=== PATIENT | male | born 1975 | race Caucasian/White ===

== ENCOUNTER 2023-08-02 17:14 | Emergency (ER) | payer BC, SELFPAY ==
[2023-08-02 17:16] VITALS: BP 164/105; PULSE 70; RESP 18; TEMP 36.4; O2SAT 100
--- NOTE | 2023-08-02 21:30 | ED.MALEGU ---
HPI - Male Genitourinary General Chief complaint: Urogenital-Male Stated complaint: STD Check Time Seen by Provider: 08/02/23 20:38 Source: patient Mode of arrival: ambulatory Limitations: no limitations History of Present Illness HPI Narrative: Patient is a 48-year-old male who presents to the ED requesting HIV and hepatitis testing. Patient reports recently having an extramarital affair over the last 2 months. at bedside reports she discovered this and had STD testing and was reactive for HIV and hepatitis-C. She then requested that patient come get tested as well. 's HIV testing was sent off for further review. tested negative for gonorrhea, chlamydia, Trichomonas. Patient requesting be tested for HIV and hepatitis. He denies any symptoms. Denies fevers, weight loss, night sweats, penile discharge, dysuria, abdominal pain, nausea, vomiting. Related Data Allergies Allergy/AdvReac Type Severity Reaction Status Date / Time No Known Allergies Allergy Verified 08/02/23 20:39 Review of Systems Review of Systems: CONSTITUTIONAL: Denies fever, chills, or sweats. CARDIOVASCULAR: Denies chest pain. RESPIRATORY: Denies dyspnea. GASTROINTESTINAL: Denies abdominal pain, nausea, vomiting, or diarrhea. GENITOURINARY: Denies dysuria or hematuria. NEUROLOGIC: Denies headache, dizziness, numbness, or weakness. All systems reviewed & are unremarkable except as noted in HPI and below Exam Narrative: GENERAL: Well appearing, obese with BMI of 32.8, non-toxic, in no acute distress. HEAD: Normocephalic, atraumatic. RESPIRATORY: Airway patent, respirations nonlabored. Clear to auscultation bilaterally, no rales, rhonchi, wheezing. CARDIOVASCULAR: Regular rate and rhythm without murmurs, rubs, or gallops. MUSCULOSKELETAL: Moves all extremities. No gross deformities. SKIN: Warm, dry, normal color. NEURO: A&O X3. Speech clear. PSYCHIATRIC: Appropriate mood and affect. Normal interaction. Course Vital Signs Vital signs: Vital Signs Temperature 97.6 F 08/02/23 17:16 Pulse Rate 70 08/02/23 17:16 Respiratory Rate 18 08/02/23 17:16 Blood Pressure 164/105 H 08/02/23 17:16 Pulse Oximetry 100 08/02/23 17:16 Oxygen Delivery Room Air 08/02/23 17:16 Temperature 97.6 F 08/02/23 17:16 Pulse Rate 70 08/02/23 17:16 Respiratory Rate 18 08/02/23 17:16 Blood Pressure 164/105 H 08/02/23 17:16 Pulse Oximetry 100 08/02/23 17:16 Oxygen Delivery Room Air 08/02/23 17:16 MDM - Male Genitourinary MDM Narrative Medical decision making narrative: Patient requesting HIV and hepatitis testing. Reportedly had extramarital affair and has since tested positive for HIV and hepatitis-C. Patient asymptomatic. Exam unremarkable. No evidence of hemodynamic instability. 4th generation HIV testing here negative. Hepatitis A, B, C negative. Patient updated on results. Advised close follow-up with primary care doctor for further evaluation and repeat laboratory testing. Had a long discussion with patient and about results possibilities and advised both parties to avoid further sexual exposure or encounters until further seen and cleared by primary care doctor. Medical Records Attestation: I reviewed the patient's medical records. Lab Data Attestation: I reviewed the patient's lab results. Labs: Lab Results 08/02/23 Range/Units 21:53 Hepatitis A IgM Ab Negative (Negative) Hep Bs Antigen Negative (Negative) Hep B Core IgM Ab Negative (Negative) Hepatitis C Ab Screen Negative (Negative) HIV 1&2 Ab/P24 Ag 4thGn Negative (Negative) Discharge Plan Discharge Clinical Impression: Screening for STDs (sexually transmitted diseases) Patient Disposition: Home, Self-Care Condition: Stable Instructions: Antibiotic Form, Sexually Transmitted Diseases (ED), Safe Sex Practices (ED), HIV Transmission (ED), HIV Infection (ED) Additional Instructions:
--- NOTE | 2023-08-02 22:03 | PC.NURSE ---
upon lab draw pt stated, how long is this going to take, I want to go home . This RN explained the process of lab draw.
[2023-08-02 22:50] LABS: HIV 1/2 Ab P24 Ag Result Negative (Negative)
[2023-08-02 22:51] LABS: Hepatitis B Surface Antigen Negative (Negative)
[2023-08-02 22:57] LABS: HAV RESULT Negative (Negative); Hepatitis B Core IgM Result Negative (Negative)
[2023-08-02 23:09] LABS: Hepatitis C Virus Antibody Negative (Negative)
== END 2023-08-02 23:40 | disposition home or self-care (01) ==
PROVIDERS: Emergency Provider Physician Assistant
DX: Z11.4 Encounter for screening for human immunodeficiency virus [HIV] (principal); Z11.3 Encounter for screening for infections with a predominantly sexual mode of transmission
CPT/HCPCS: 36415; 80074; 86703; 99283; G0432